=== PATIENT | male | born 1975 | race Caucasian/White ===

== ENCOUNTER 2018-04-23 12:36 | Emergency (ER) | payer OTHER ==
[~2018-04-23] VITALS: Ht 182.9 cm; Wt 127.0 kg
[~2018-04-23 12:36] MED LIST: CEPH500 PO; HYDACE10B PO; HYDACE5 PO; SULTRIDS PO
[2018-04-23] MEDS ORDERED: NEOPOLHCSU LEFTEAR (12:47)
== END 2018-04-23 12:49 | disposition home or self-care (01) ==
LOC: ER 12:36
DX: T16.2XXA Foreign body in left ear, initial encounter (principal); H60.92 Unspecified otitis externa, left ear; Z79.899 Other long term (current) drug therapy; F17.200 Nicotine dependence, unspecified, uncomplicated
CPT/HCPCS: 69200; 99282-25

== ENCOUNTER 2018-07-08 09:56 | Emergency (ER) | payer OTHER ==
[~2018-07-08] VITALS: Ht 182.9 cm; Wt 124.7 kg
[~2018-07-08 09:56] MED LIST changes: +NEOPOLHCSU LEFTEAR
[2018-07-08 10:31] LABS: BASOPHILS ABSOLUTE AUTO 0.03 K/mm3 (0.00-0.23); BASOPHILS PERCENT AUTO 0 % (0-2); EOSINOPHILS ABSOLUTE AUTO 0.04 K/mm3 (0.00-0.68); EOSINOPHILS PERCENT AUTO 1 % (0-6); Hematocrit 43.5 % (37.0-53.0); Hemoglobin 13.9 g/dL (13.5-17.5); IMMATURE GRAN ABSOLUTE AUTO 0.04 K/mm3 (0.00-0.10); IMMATURE GRAN PERCENT AUTO 1 % (0-1); LYMPHOCYTES ABSOLUTE AUTO 1.74 K/mm3 (0.84-5.20); LYMPHOCYTES PERCENT AUTO 20 % (21-46); MONOCYTES ABSOLUTE AUTO 0.93 K/mm3 (0.16-1.47); MONOCYTES PERCENT AUTO 11 % (4-13); Mean Corpuscular HGB 31.2 pg (26.0-34.0); Mean Corpuscular Volume 98 fL (80-100); Mean Platelet Volume 9.5 fL (9.1-12.4); NEUTROPHILS ABSOLUTE AUTO 5.75 K/mm3 (1.96-9.15); NEUTROPHILS PERCENT AUTO 67 % (41-73); Platelet Count 195 K/mm3 (150-400); RDW Coefficient Variation 13.7 % (11.7-14.2); RDW Standard Deviation 48.5 fL (35.1-46.3); Red Blood Cell Count 4.46 M/mm3 (4.30-5.90); White Blood Cell Count 8.53 K/mm3 (4.00-11.30)
[2018-07-08 10:59] LABS: Alanine Aminotransfer (ALT/SGP 125 U/L (12-78); Albumin, Blood 3.3 g/dL (3.4-5.0); Albumin/Globulin Ratio 0.8 (0.8-1.8); Alk Phos 111 U/L (50-136); Anion Gap 8 mmol/L (6-16); Aspartate Aminotrans (AST/SGOT 79 U/L (12-37); Bilirubin, Total 1.4 mg/dL (0.1-1.0); Blood Urea Nitrogen 9 mg/dL (8-24); Bun/Creatinine Ratio 12.2 (12.0-20.0); CO2, Blood 25 mmol/L (21-32); Calcium, Blood 8.5 mg/dL (8.5-10.1); Chloride, Blood 101 mmol/L (98-108); Creatinine, Blood 0.74 mg/dL (0.60-1.20); Globulin, Blood 4.4 g/dL (2.2-4.0); Glomerular Filtration Rate >60 (60-); Glucose, Blood 176 mg/dL (70-99); Potassium, Blood 3.9 mmol/L (3.5-5.5); Sodium, Blood 134 mmol/L (136-145); Total Protein, Blood 7.7 g/dL (6.4-8.2); Troponin I <0.015 ng/mL (0.000-0.040)
[2018-07-08] MEDS ORDERED: Zithromax250 MG PO (11:56)
[2018-07-08] MEDS ORDERED: Proventil5 MG/1 ML INH (11:56)
[2018-07-08] MEDS ORDERED: ALBU90OI INH (11:56)
[2018-07-08] MEDS ORDERED: Prednisone20 MG PO (11:56)
== END 2018-07-08 12:26 | disposition home or self-care (01) ==
LOC: ER 09:56
PROVIDERS: Emergency Medicine
DX: J18.1 Lobar pneumonia, unspecified organism (principal); J98.01 Acute bronchospasm; F17.200 Nicotine dependence, unspecified, uncomplicated
CPT/HCPCS: 36415; 71046; 80053; 83880; 84484; 85025; 93005; 93010; 94640; 99285-25

== ENCOUNTER 2018-07-14 16:03 | Observation (INO) | payer OTHER ==
[~2018-07-14] VITALS: Ht 182.9 cm; Wt 133.7 kg
[~2018-07-14 16:03] MED LIST changes: +ALBU90OI INH; +Prednisone20 MG PO; +Proventil5 MG/1 ML INH; +Zithromax250 MG PO
[2018-07-14 18:13] LABS: BASOPHILS ABSOLUTE AUTO 0.13 K/mm3 (0.00-0.23); BASOPHILS PERCENT AUTO 1 % (0-2); EOSINOPHILS ABSOLUTE AUTO 0.16 K/mm3 (0.00-0.68); EOSINOPHILS PERCENT AUTO 2 % (0-6); Hematocrit 51.5 % (37.0-53.0); Hemoglobin 15.9 g/dL (13.5-17.5); IMMATURE GRAN ABSOLUTE AUTO 0.43 K/mm3 (0.00-0.10); IMMATURE GRAN PERCENT AUTO 4 % (0-1); LYMPHOCYTES ABSOLUTE AUTO 2.77 K/mm3 (0.84-5.20); LYMPHOCYTES PERCENT AUTO 27 % (21-46); MONOCYTES ABSOLUTE AUTO 1.06 K/mm3 (0.16-1.47); MONOCYTES PERCENT AUTO 10 % (4-13); Mean Corpuscular HGB 31.2 pg (26.0-34.0); Mean Corpuscular HGB Conc 30.9 g/dL (31.5-36.5); Mean Platelet Volume 9.5 fL (9.1-12.4); NEUTROPHILS ABSOLUTE AUTO 5.74 K/mm3 (1.96-9.15); NEUTROPHILS PERCENT AUTO 56 % (41-73); Platelet Count 250 K/mm3 (150-400); RDW Coefficient Variation 14.5 % (11.7-14.2); RDW Standard Deviation 53.2 fL (35.1-46.3); White Blood Cell Count 10.29 K/mm3 (4.00-11.30)
[2018-07-14 18:15] LABS: Mean Corpuscular Volume 101 fL (80-100)
[2018-07-14 18:26] LABS: Bun/Creatinine Ratio 15.5 (12.0-20.0); Calcium, Blood 9.6 mg/dL (8.5-10.1); Potassium, Blood 4.3 mmol/L (3.5-5.5)
[2018-07-14] MEDS ORDERED: ALBU90OI61 INH (22:31)
[2018-07-14 23:36] LABS: Bilirubin, Urine Neg (Neg); Blood, Urine Neg (Neg); Glucose Qualitative, Urine Neg (Neg); Ketones, Urine Neg (Neg); Leukocyte Esterase, Urine Neg (Neg); Nitrite, Urine Neg (Neg); Protein, Urine 2+ (Neg); Source, Urine Clean Catch; Specific Gravity, Urine 1.025 (1.003-1.022); Urobilinogen, Urine NORM (Normal)
[2018-07-14 23:38] LABS: Appearance, Urine Clear (Clear); Color, Urine Yellow (P-Yellow)
[2018-07-14 23:48] LABS: Amorphous Light (0-Heavy); Bacteria Few /hpf; Red Blood Cells, Urine Not Seen /hpf (0-2); Squamous Epithelial Cells Few /hpf (Few); White Blood Cells, Urine 0-2 /hpf (0-5)
[2018-07-15 03:44] LABS: Hematocrit 46.1 % (37.0-53.0); Hemoglobin 14.5 g/dL (13.5-17.5); Mean Corpuscular HGB 31.1 pg (26.0-34.0); Mean Corpuscular HGB Conc 31.5 g/dL (31.5-36.5); Mean Corpuscular Volume 99 fL (80-100); Mean Platelet Volume 9.3 fL (9.1-12.4); Platelet Count 206 K/mm3 (150-400); RDW Coefficient Variation 14.1 % (11.7-14.2); RDW Standard Deviation 50.9 fL (35.1-46.3); Red Blood Cell Count 4.66 M/mm3 (4.30-5.90); White Blood Cell Count 9.95 K/mm3 (4.00-11.30)
[2018-07-15 04:01] LABS: Anion Gap 6 mmol/L (6-16); Blood Urea Nitrogen 26 mg/dL (8-24); Bun/Creatinine Ratio 22.8 (12.0-20.0); CO2, Blood 29 mmol/L (21-32); Calcium, Blood 8.8 mg/dL (8.5-10.1); Chloride, Blood 100 mmol/L (98-108); Creatinine, Blood 1.14 mg/dL (0.60-1.20); Glomerular Filtration Rate >60 (60-); Glucose, Blood 188 mg/dL (70-99); Potassium, Blood 5.2 mmol/L (3.5-5.5); Sodium, Blood 135 mmol/L (136-145)
[2018-07-15] MEDS ORDERED: OMEPRAZOLE20 MG PO (13:12)
== END 2018-07-15 14:05 | disposition home or self-care (01) ==
LOC: ER 16:03 → SURS 16:04 → PCU 16:04
PROVIDERS: Emergency Medicine; Internal Medicine Gastroenterology; Nurse Practitioner Acute Care; ADMIT Family Medicine
PROC: 0DC58ZZ Extirpation of Matter from Esophagus, Via Natural or Artificial Opening Endoscopic (ICD-10-PCS; principal; 2018-07-14 18:30)
DX: T18.128A Food in esophagus causing other injury, initial encounter (principal); N17.9 Acute kidney failure, unspecified; J96.01 Acute respiratory failure with hypoxia; K22.2 Esophageal obstruction; E66.01 Morbid (severe) obesity due to excess calories; F17.210 Nicotine dependence, cigarettes, uncomplicated; Z68.37 Body mass index [BMI] 37.0-37.9, adult
CPT/HCPCS: 36415; 71045; 71046; 80048; 81001; 82550; 83735; 84145; 85025; 85027; 94640; 94762; 96374; 96375; 99285-25; G0378; J0360; J1610; J1650; J2704; J2930; J3010; J7030; J7120

== ENCOUNTER 2018-08-05 14:26 | Inpatient (IN) | payer OTHER ==
[~2018-08-05] VITALS: Ht 182.9 cm; Wt 138.5 kg
[~2018-08-05 14:26] MED LIST changes: +ALBU90OI61 INH; +OMEPRAZOLE20 MG PO
[2018-08-05 15:12] LABS: BASOPHILS ABSOLUTE AUTO 0.02 K/mm3 (0.00-0.23); BASOPHILS PERCENT AUTO 0 % (0-2); EOSINOPHILS ABSOLUTE AUTO 0.02 K/mm3 (0.00-0.68); EOSINOPHILS PERCENT AUTO 0 % (0-6); Hematocrit 39.4 % (37.0-53.0); Hemoglobin 12.5 g/dL (13.5-17.5); IMMATURE GRAN ABSOLUTE AUTO 0.05 K/mm3 (0.00-0.10); IMMATURE GRAN PERCENT AUTO 1 % (0-1); LYMPHOCYTES ABSOLUTE AUTO 1.37 K/mm3 (0.84-5.20); LYMPHOCYTES PERCENT AUTO 15 % (21-46); MONOCYTES ABSOLUTE AUTO 0.99 K/mm3 (0.16-1.47); MONOCYTES PERCENT AUTO 11 % (4-13); Mean Corpuscular HGB 31.3 pg (26.0-34.0); Mean Corpuscular HGB Conc 31.7 g/dL (31.5-36.5); Mean Corpuscular Volume 99 fL (80-100); Mean Platelet Volume 9.9 fL (9.1-12.4); NEUTROPHILS ABSOLUTE AUTO 6.94 K/mm3 (1.96-9.15); NEUTROPHILS PERCENT AUTO 74 % (41-73); Platelet Count 168 K/mm3 (150-400); RDW Coefficient Variation 14.1 % (11.7-14.2); RDW Standard Deviation 51.4 fL (35.1-46.3); Red Blood Cell Count 3.99 M/mm3 (4.30-5.90); White Blood Cell Count 9.39 K/mm3 (4.00-11.30)
[2018-08-05 15:38] LABS: Albumin, Blood 3.7 g/dL (3.4-5.0); Albumin/Globulin Ratio 0.9 (0.8-1.8); Bilirubin, Total 1.4 mg/dL (0.1-1.0); Bun/Creatinine Ratio 17.6 (12.0-20.0); Calcium, Blood 8.4 mg/dL (8.5-10.1); Creatinine, Blood 2.89 mg/dL (0.60-1.20); Potassium, Blood 4.3 mmol/L (3.5-5.5); Total Protein, Blood 7.7 g/dL (6.4-8.2)
[2018-08-05 16:59] LABS: Salicylate <1.7 mg/dL (2.8-20.0)
[2018-08-05] MEDS ORDERED: ALBU2.5V5 NEB (17:01)
[2018-08-05 17:10] LABS: Acetaminophen, Random <2.0 ug/mL (10.0-30.0)
[2018-08-05 17:49] LABS: U Amphetamine Screen Not Detected; U Barbituate Screen Not Detected; U Benzodiazapine Screen Not Detected; U Buprenorphine Screen Not Detected; U Cannabinoids Screen DETECTED; U Cocaine Screen Not Detected; U Methadone Screen Not Detected; U Methamphetamine Screen Not Detected; U Opiates Screen DETECTED; U Oxycodone Screen Not Detected; U Phencyclidine Screen Not Detected; U Propoxyphene Screen Not Detected
[2018-08-05 17:49] LABS: PCO2 Arterial 59.8 mmHg (35-45); pH Blood Arterial 7.21 (7.35-7.45)
[2018-08-05 18:19] LABS: Uric Acid, Blood 11.9 mg/dL (3.5-7.2)
[2018-08-05 18:27] LABS: Magnesium, Blood 2.2 mg/dL (1.6-2.4)
[2018-08-05 18:27] LABS: Source, Urine Clean Catch
[2018-08-05 18:28] LABS: Phosphorus, Blood 4.6 mg/dL (2.5-4.9)
[2018-08-05 18:31] LABS: Bilirubin, Urine Neg (Neg); Blood, Urine 3+ (Neg); Glucose Qualitative, Urine 3+ (Neg); Ketones, Urine Neg (Neg); Leukocyte Esterase, Urine Neg (Neg); Nitrite, Urine Neg (Neg); Protein, Urine 2+ (Neg); Specific Gravity, Urine 1.025 (1.003-1.022); Urobilinogen, Urine NORM (Normal)
[2018-08-05 18:41] LABS: Appearance, Urine Turbid (Clear); Color, Urine Yellow (P-Yellow)
[2018-08-05 18:42] LABS: CHOL/HDL RATIO 4.9; Cholesterol 222 mg/dL (50-200); HDL Cholesterol 45 mg/dL (>39); Low Density Lipoprotein Chol 134 mg/dL (0-110); Triglycerides 213 mg/dL (30-160); Very Low Density Lipoprot Chol 42 mg/dL (6-32)
[2018-08-05 18:43] LABS: Amorphous Heavy (0-Heavy); White Blood Cells, Urine 0-2 /hpf (0-5)
[2018-08-05 18:44] LABS: Bacteria Few /hpf; Squamous Epithelial Cells Not Seen /hpf (Few)
[2018-08-05] MEDS ORDERED: OMEPRAZOLE MAGN20 MG PO (19:04)
[2018-08-05 20:29] LABS: U Amphetamine Screen Not Detected; U Barbituate Screen Not Detected; U Benzodiazapine Screen Not Detected; U Buprenorphine Screen Not Detected; U Cannabinoids Screen DETECTED; U Cocaine Screen Not Detected; U Methadone Screen Not Detected; U Methamphetamine Screen Not Detected; U Opiates Screen DETECTED; U Oxycodone Screen Not Detected; U Phencyclidine Screen Not Detected; U Propoxyphene Screen Not Detected
--- NOTE | 2018-08-05 21:19 | NUR ---
ASSUMED CARE OF PATIENT AT APPROXIMATELY 1905 FROM CM Aldridge RN. PATIENT ARRIVED TO UNIT ABOUT THIRTY MINUTES BEFORE SHIFT CHANGE; AMBULATED FROM ED TO PCU STRETCHER REPORTEDLY. PATIENT HAS VISIBLE TREMOR; PATIENT AND SIGNIFICANT OTHER REPORTS TREMOR FOR DAYS; PATIENT REPORTS HE DRINKS A PINT OF VODKA A DAY; LAST ON THURSDAY; PATIENT UNABLE TO STATE CURRENT DATE (REPORTED 08/15); ANXIOUS; IRRITABLE; REPORTS TOO MANY NOISES. PATIENT SWEATING; TELE STICKERS FALLING OFF PATIENT; REPORTS BEEN SWEATING LIKE THIS FOR DAYS. PATIENT'S GIRLFRIEND REPORTS HE TOOK A [place] FOR A FRIEND A FEW DAYS AGO; UA SENT; POSISTIVE. WHILE TAKING VITAL SIGNS AT SHIFT CHANGE THIS RN ATTEMPTED TO STERNAL RUB PATIENT; PATIENT WAS ON BIPAP AND WAS NOT OPENING EYES; VSS; PATIENT WOKE PATIENT UP WITH A SLAP. PATIENT AND GIRLFRIEND BOTH REPORTED THAT PATIENT WAS LIKE THIS THIS MORNING; HE WAS ALSO FOAMING OUT THE MOUTH AND IS WHY THE PATIENT CAME INTO THE HOSPITAL. WILL CALL HOSPITALIST FOR ALCOHOL WITHDRAWAL PROTOCOL. 1L NS BOLUS COMPLETE. PATIENT URINATES INTO URINAL AT BEDSIDE. REPORTS NUMBNESS AND TINGLING TO FEET FOR MONTHS NOW. NO PAIN OR NAUSEA REPORTED. PATIENT'S GIRLFRIEND REPORTS PATIENT WAS DIZZY THIS MORNING; PATIENT CURRENTLY DENIES. PATIENT CURRENTLY RESTING IN BED; CALL LIGHT IN REACH; BED IN LOWEST POSISTION; WILL CONTINUE TO MONITOR AND ASSESS UNTIL END OF SHIFT.
[2018-08-05 23:00] LABS: Bun/Creatinine Ratio 22.2 (12.0-20.0); Calcium, Blood 7.9 mg/dL (8.5-10.1); Creatinine, Blood 1.85 mg/dL (0.60-1.20); Potassium, Blood 5.1 mmol/L (3.5-5.5)
[2018-08-05 23:04] LABS: PCO2 Arterial 48.9 mmHg (35-45); PO2 Arterial 76.4 mmHg (80-100)
[2018-08-05 23:05] LABS: pH Blood Arterial 7.27 (7.35-7.45)
[2018-08-05 23:27] LABS: International Normalized Ratio 1.03; Prothrombin Time Results 10.9 Sec (9.7-11.5)
[2018-08-06 03:25] LABS: Hematocrit 31.5 % (37.0-53.0); Hemoglobin 9.8 g/dL (13.5-17.5); Mean Corpuscular HGB Conc 31.1 g/dL (31.5-36.5); Mean Corpuscular Volume 100 fL (80-100); Mean Platelet Volume 9.9 fL (9.1-12.4); Platelet Count 129 K/mm3 (150-400); RDW Coefficient Variation 14.1 % (11.7-14.2); RDW Standard Deviation 51.6 fL (35.1-46.3); Red Blood Cell Count 3.16 M/mm3 (4.30-5.90); White Blood Cell Count 6.04 K/mm3 (4.00-11.30)
[2018-08-06 03:44] LABS: International Normalized Ratio 1.1; Prothrombin Time Results 11.6 Sec (9.7-11.5)
[2018-08-06 03:49] LABS: Uric Acid, Blood 6.5 mg/dL (3.5-7.2)
[2018-08-06 04:06] LABS: Alanine Aminotransfer (ALT/SGP 104 U/L (12-78); Albumin, Blood 2.6 g/dL (3.4-5.0); Albumin/Globulin Ratio 0.9 (0.8-1.8); Alk Phos 63 U/L (50-136); Anion Gap 5 mmol/L (6-16); Aspartate Aminotrans (AST/SGOT 87 U/L (12-37); Bilirubin, Total 0.7 mg/dL (0.1-1.0); Blood Urea Nitrogen 32 mg/dL (8-24); Bun/Creatinine Ratio 26.7 (12.0-20.0); CO2, Blood 21 mmol/L (21-32); Calcium, Blood 6.5 mg/dL (8.5-10.1); Chloride, Blood 111 mmol/L (98-108); Globulin, Blood 2.9 g/dL (2.2-4.0); Glomerular Filtration Rate >60 (60-); Glucose, Blood 207 mg/dL (70-99); Potassium, Blood 4.3 mmol/L (3.5-5.5); Sodium, Blood 137 mmol/L (136-145)
[2018-08-06 04:09] LABS: Total Protein, Blood 5.5 g/dL (6.4-8.2)
--- NOTE | 2018-08-06 06:22 | NUR ---
PATIENT HAS SLEPT ABOUT 8 HOURS WITH BIPAP; STANDS TO URINATE AT BEDISDE; POWERGLIDE PLACED IN MAXINE. LABS IMPROVING; IVF INFUSING PER ORDER. VSS. WILL CONTINUE TO MONITOR AND ASSESS UNTIL END OF SHIFT.
--- NOTE | 2018-08-06 09:12 | NUR ---
Echocardiogram completed.
--- NOTE | 2018-08-06 19:31 | NUR ---
SHIFT SUMMARY- PT C/O LOWER BACK PAIN THIS PM. MEDS GIVEN PER EMAR. PT DENIES SOB. 93% ON 4L O2 NC. DENIES N/V. CIWA SCORES THIS AM AND AFTERNOON 2-4. CIWA SCORE OF 9 THIS PM. MEDS GIVEN PER EMAR. INDEPENDENT IN THE ROOM. NSR AT 72 PER PCU BLOCK HANDLER. NO OTHER SIGNIFICANT CHANGES THIS SHIFT.
[2018-08-07 02:43] LABS: Adenovirus Not Detected (NOT DETECT); Bordetella pertussis Not Detected (NOT DETECT); Chlamydophila pneumoniae Not Detected (NOT DETECT); Coronavirus 229E Not Detected (NOT DETECT); Coronavirus HKU1 Not Detected (NOT DETECT); Coronavirus NL63 Not Detected (NOT DETECT); Coronavirus OC43 Not Detected (NOT DETECT); Human Metapneumovirus Not Detected (NOT DETECT); Human Rhinovirus/Enterovirus Not Detected (NOT DETECT); Influenza A Not Detected (NOT DETECT); Influenza A/2009-H1 Not Detected (NOT DETECT); Influenza A/H1 Not Detected (NOT DETECT); Influenza A/H3 Not Detected (NOT DETECT); Influenza B Not Detected (NOT DETECT); Mycoplasma pneumoniae Not Detected (NOT DETECT); Parainfluenza Virus 1 Not Detected (NOT DETECT); Parainfluenza Virus 2 Not Detected (NOT DETECT); Parainfluenza Virus 3 Not Detected (NOT DETECT); Parainfluenza Virus 4 Not Detected (NOT DETECT); Respiratory Syncytial Virus Not Detected (NOT DETECT)
--- NOTE | 2018-08-07 06:37 | NUR ---
SHIFT SUMMARY PT ADMITTED W/ ACUTE RESP FAILURE & HYPOXIA. HE IS ALSO UNDER CIWAS PROTOCOL, LAST CIWA AT 0415 WAS 13 AND HE WAS GIVEN ATIVAN AND LIBRIUM AT THAT TIME. TELE WAS NSR OVERNIGHT. PT IS HAVING LOOSE STOOLS AND COPIOUS FLATUS R/T THE LACTULOSE TO BRING HIS LACTIC ACID DOWN. PT IS A&O, INDEP TO THE BR. 3L VIA CO AND HE WORE HIS BIPAP FOR A FEW HOURS OVERNIGHT. PT'S VISITOR HAD A FALL LAST NIGHT, TRIED TO GET OUT OF THE RECLINER WITH A CASTED LEG WITHOUT PUTTING DOWN THE FOOT OF THE RECLINER. SHE REFUSED TO GO TO THE ED FOLLOWING THE FALL. WILL CTM UNTIL PASS TO NEXT SHIFT.
--- NOTE | 2018-08-07 18:50 | NUR ---
ASSUMED CARE OF PT AT APPROXIMATELY 1630. PT ALERT AND ORIENTED. VS STABLE. 02 SATS >90% ON 2L NC. HR IS AFIB IN THE 100'S. PT DENIES ANY CP. REPORT GIVEN TO RN BARIATRIC RN.
--- NOTE | 2018-08-07 18:51 | NUR ---
SHIFT SUMMARY PT ALERT AND ORIENTED. VS STABLE. 02 SATS HAVE REMAINED ABOVE 92% ON 2L NC. PT STATES HE FEELS ANXIOUS OCCASIONALLY, BUT FEELS RELAXED AFTER WALKING. PT TAKEN ON MULTIPLE WALKS THROUGHOUT SHIFT. CIWA HAS BEEN A 2 ALL DAY. PT DENIES ANY PAIN. WILL CONTINUE TO MONITOR AND REPORT TO ONCOMING RN. CALL LIGHT IN REACH
--- NOTE | 2018-08-07 20:31 | NUR ---
PT OUTSIDE OF ROOM AT THIS ROUNDING.
[2018-08-08 04:36] LABS: BASOPHILS ABSOLUTE AUTO 0.01 K/mm3 (0.00-0.23); BASOPHILS PERCENT AUTO 0 % (0-2); EOSINOPHILS ABSOLUTE AUTO 0.01 K/mm3 (0.00-0.68); EOSINOPHILS PERCENT AUTO 0 % (0-6); Hematocrit 35.9 % (37.0-53.0); Hemoglobin 11.2 g/dL (13.5-17.5); IMMATURE GRAN ABSOLUTE AUTO 0.13 K/mm3 (0.00-0.10); IMMATURE GRAN PERCENT AUTO 1 % (0-1); LYMPHOCYTES PERCENT AUTO 16 % (21-46); MONOCYTES ABSOLUTE AUTO 0.93 K/mm3 (0.16-1.47); MONOCYTES PERCENT AUTO 10 % (4-13); Mean Corpuscular HGB 31.7 pg (26.0-34.0); Mean Corpuscular HGB Conc 31.2 g/dL (31.5-36.5); Mean Corpuscular Volume 102 fL (80-100); Mean Platelet Volume 10.4 fL (9.1-12.4); NEUTROPHILS ABSOLUTE AUTO 7.12 K/mm3 (1.96-9.15); NEUTROPHILS PERCENT AUTO 73 % (41-73); Platelet Count 193 K/mm3 (150-400); RDW Coefficient Variation 14.6 % (11.7-14.2); RDW Standard Deviation 53.8 fL (35.1-46.3); Red Blood Cell Count 3.53 M/mm3 (4.30-5.90)
--- NOTE | 2018-08-08 04:47 | NUR ---
PT HAD NO ACUTE CHANGES T/O NIGHT. SATS >90% ON 2LNC. PT HAD DIFFICULTY KEEPING CPAP IN PLACE, REP "IT FEELS LIKE I'M SUFFOCATING" PT EDUCATED AND REASSURRED, ENC TO CONT TO TRIAL CPAP WHILE SLEEPING. LUNGS DIM T/O W/EXP WNEEZING, PT REP COUGH LOOSER THIS AM. PT AMB INDEP, BURT WELL, DOES BECOME SOB W/EXERTION. PT DENIED CP. CIWAA MAX 7, PT MEDICATED PER EMAR. SIG OTHER AT BEDSIDE, SUPPORTIVE AND ENCOURAGING. PT USING CALL LIGHT FOR ASSISTANCE, WILL CONT TO MONITOR UNTIL REP GIVEN TO ONCOMING RN.
[2018-08-08 04:56] LABS: PCO2 Arterial 47.1 mmHg (35-45); PO2 Arterial 88.5 mmHg (80-100); pH Blood Arterial 7.32 (7.35-7.45)
[2018-08-08 04:57] LABS: Anion Gap 7 mmol/L (6-16); Blood Urea Nitrogen 25 mg/dL (8-24); Bun/Creatinine Ratio 25.7 (12.0-20.0); CO2, Blood 24 mmol/L (21-32); Calcium, Blood 8.3 mg/dL (8.5-10.1); Chloride, Blood 106 mmol/L (98-108); Creatinine, Blood 0.97 mg/dL (0.60-1.20); Free Thyroxine 0.88 ng/dL (0.70-1.60); Glomerular Filtration Rate >60 (60-); Glucose, Blood 235 mg/dL (70-99); Potassium, Blood 4.4 mmol/L (3.5-5.5); Sodium, Blood 137 mmol/L (136-145); Troponin I 0.025 ng/mL (0.000-0.040)
[2018-08-08 05:00] LABS: Triiodothyronine, Free 1.77 pg/mL (2.18-3.98)
--- NOTE | 2018-08-08 07:21 | NUR ---
ASSUMED CARE: RECEIVED REPORT FROM NOC RN. PT APPEARS TO BE AWAKE AT THIS TIME, REPORT OF PT WEARING CPAP T/O THE NIGHT WITH 2L BLEED IN. AT BEDSIDE AT THIS TIME. WILL ASSESS FURTHER AND CONTINUE TO MONITOR.
--- NOTE | 2018-08-08 10:00 | NUR ---
ASSUMED CARE OF PT AT APPROXIMATELY 0730. PT ALERT AND ORIENTED. VS STABLE. PT HAS BEEN ON ROOM AIR THE LAST 3 HOURS. 02 SATS HAVE REMAINED ABOVE 90%. PT HAS BEEN AMBULATING INDEPENDENTLY. PT ENCOURAGED TO STAY IN UNIT, BUT WALKS OUTSIDE. PT SMELLED LIKE SMOKE WHEN HE BACK IN THIS AM AND EDUCATED ABOUT SMOKING CESSATION. PT DENIES SMOKING. WILL CONTINUE TO MONITOR. AT BEDSIDE.
[2018-08-08 10:37] LABS: Percent Saturation 12.3 % (20.0-50.0)
--- NOTE | 2018-08-08 18:08 | NUR ---
SHIFT SUMMARY PT ALERT AND ORIENTED. VS STABLE. PT TITRATED TO ROOM AIR TODAY WITH SATS >90%. PT DENIES ANY PAIN. PT TOOK MULTIPLE WALKS THIS SHIFT AROUND HOSPITAL. PT TO HAVE SLEEP STUDY THIS EVENING. PT STATES HE FELT MILDLY ANXIOUS THIS SHIFT THAT WAS RELIEVED WITH WALKING. WILL CONTINUE TO MONITOR AND REPORT TO SURGICAL FLOOR RN FOR TRANSFER. CALL LIGHT IN REACH. AT BEDSIDE.
--- NOTE | 2018-08-08 20:26 | NUR ---
TRANSFER NOTE REPORT GIVEN BY DAY SHIFT RN TO RECEIVING RN. PER DAY SHIFT RN, PATIENT LEFT ON WALK DURING REPORT AND DID NOT RETURN UNTIL APPROX 1999, PATIENT WAS PAGED OVERHEAD TO RETURN TO ROOM. AFTER PATIENT RETURNED AT APPROX 1999 PATIENT GATHERED UP ALL HIS BELONINGS AND WAS TRANSFERED OVER TO SURGICAL ROOM 224. PATIENT ABLE TO AMBULATE OVER AND WAS WALKED OVER AND SETTLED IN TO HIS NEW ROOM. ALL BELONGINGS SENT WITH PATIENT. PATIENT'S VISITOR WHO HAS BEEN STAYING THE NIGHT WITH PATIENT PRESENT WITH PATIENT FOR TRANSFER.
--- NOTE | 2018-08-09 06:48 | NUR ---
LYING IN SEMI FOWLERS WITH EYES CLOSED. SLEEP STUDY COMPLETED THIS MORNING. STATES THAT HE FEELS TIRED THIS MORNING. DENIES FURTHER NEEDS AT THIS TIME. WILL GIVE HAND OFF TO ONCOMING SHIFT USING SCAR.
--- NOTE | 2018-08-09 18:26 | NUR ---
SHIFT SUMMARY PT HAS BEEN AMBULATORY SEVERAL TIMES DURING DAY. MD CALLED RE: HTN. NO S/S OF RESP DISTRESS.
--- NOTE | 2018-08-09 21:02 | NUR ---
210: PT CHECKS IN WITH RN AND STATES THAT HE IS GOING TO ER TO WAIT WITH HIS WHO IS WAITING TO BE SEEN. VERRBALIZES UNDERSTANDING TO CALL WHEN HE RETURNS TO ROOM.
--- NOTE | 2018-08-10 09:12 | NUR ---
2719 PATIENT RETURNED TO ROOM PATIENT TELLS ME HE WAS OUT SMOKING, SELF AMBULATED BACK TO ROOM, DENIES ANY PAIN OR SOB
[2018-08-10] MEDS ORDERED: ASPI81CH PO (09:52)
[2018-08-10] MEDS ORDERED: METF500 PO (09:54)
[2018-08-10] MEDS ORDERED: METO25 PO (09:55)
[2018-08-10] MEDS ORDERED: PRED10 PO (09:58)
[2018-08-10] MEDS ORDERED: THIA100I (09:58)
[2018-08-10] MEDS ORDERED: Thiamine HCl100 MG PO (09:59)
[2018-08-10] MEDS ORDERED: AMLO10 PO (10:00)
[2018-08-10] MEDS ORDERED: Hair, Skin & N1 EACH PO (10:01)
[2018-08-10] MEDS ORDERED: METF500 (10:20)
--- NOTE | 2018-08-10 14:12 | NUR ---
2825 discharge discharge instructions reviewed with patient and questions answered. patients prescriptions faxed to [facility] per patient request. spoke with Judi Smith, discharge planning, who tells me Syeda Dockery RN will speak to patient regarding establishing pcp. patient discharged to home accompanied by his girlfriend
== END 2018-08-10 12:40 | disposition home or self-care (01) | DRG 189 ==
LOC: ER 14:26 → SURS 17:41 → PCU 17:41 → SURS 08-08 20:13
PROVIDERS: Nurse Practitioner Acute Care; Physician Assistant; ADMIT Internal Medicine
DX: J96.01 Acute respiratory failure with hypoxia (principal); G92 Toxic encephalopathy; I21.4 Non-ST elevation (NSTEMI) myocardial infarction; J44.1 Chronic obstructive pulmonary disease with (acute) exacerbation; N17.9 Acute kidney failure, unspecified; Z68.41 Body mass index [BMI] 40.0-44.9, adult; F10.239 Alcohol dependence with withdrawal, unspecified; E66.2 Morbid (severe) obesity with alveolar hypoventilation; J96.02 Acute respiratory failure with hypercapnia; K21.9 Gastro-esophageal reflux disease without esophagitis; R79.89 Other specified abnormal findings of blood chemistry; G47.33 Obstructive sleep apnea (adult) (pediatric); F17.210 Nicotine dependence, cigarettes, uncomplicated; E11.9 Type 2 diabetes mellitus without complications; I16.0 Hypertensive urgency; E03.9 Hypothyroidism, unspecified
CPT/HCPCS: 36415; 36600; 51798; 71045; 76700; 80048; 80053; 80061; 81001; 81003; 82140; 82330; 82550; 82570; 82728; 82803; 82947; 83036; 83540; 83550; 83605; 83735; 83880; 84100; 84145; 84300; 84439; 84481; 84484; 84550; 85025; 85027; 85379; 85610; 87040; 87486; 87581; 87633; 87798; 93005; 93010; 93306; 94640; 94660; 94762; 96361; 96374; 99285-25; C1751; G0480; J0456; J1650; J2060; J2930; J7030; J7040; J7050; J7512

== ENCOUNTER → 2019-08-17 | Outpatient (CLI) | payer OTHER ==
[~2019-08-17] MED LIST changes: +ALBU2.5V5 NEB; +AMLO10 PO; +ASPI81CH PO; +Hair, Skin & N1 EACH PO; +METF500; +METF500 PO; +METO25 PO; +OMEPRAZOLE MAGN20 MG PO; +PRED10 PO; +THIA100I; +Thiamine HCl100 MG PO
[2019-08-17 09:57] LABS: BASOPHILS ABSOLUTE AUTO 0.06 K/mm3 (0.00-0.23); BASOPHILS PERCENT AUTO 1 % (0-2); EOSINOPHILS ABSOLUTE AUTO 0.06 K/mm3 (0.00-0.68); EOSINOPHILS PERCENT AUTO 1 % (0-6); Hematocrit 43.1 % (37.0-53.0); Hemoglobin 14.5 g/dL (13.5-17.5); IMMATURE GRAN ABSOLUTE AUTO 0.07 K/mm3 (0.00-0.10); IMMATURE GRAN PERCENT AUTO 1 % (0-1); LYMPHOCYTES ABSOLUTE AUTO 1.46 K/mm3 (0.84-5.20); LYMPHOCYTES PERCENT AUTO 19 % (21-46); MONOCYTES ABSOLUTE AUTO 0.76 K/mm3 (0.16-1.47); MONOCYTES PERCENT AUTO 10 % (4-13); Mean Corpuscular HGB 31.9 pg (26.0-34.0); Mean Corpuscular HGB Conc 33.6 g/dL (31.5-36.5); Mean Corpuscular Volume 95 fL (80-100); NEUTROPHILS PERCENT AUTO 69 % (41-73); Platelet Count 216 K/mm3 (150-400); RDW Coefficient Variation 13.1 % (11.7-14.2); RDW Standard Deviation 45.7 fL (35.1-46.3); Red Blood Cell Count 4.54 M/mm3 (4.30-5.90); White Blood Cell Count 7.71 K/mm3 (4.00-11.30)
[2019-08-17 10:06] LABS: Alanine Aminotransfer (ALT/SGP 185 U/L (12-78); Albumin, Blood 3.8 g/dL (3.4-5.0); Albumin/Globulin Ratio 0.7 (0.8-1.8); Alk Phos 147 U/L (40-126); Anion Gap 13 mmol/L (6-16); Aspartate Aminotrans (AST/SGOT 159 U/L (12-37); Bilirubin, Total 3.5 mg/dL (0.1-1.0); Blood Urea Nitrogen 9 mg/dL (8-24); Bun/Creatinine Ratio 7.6 (12.0-20.0); CO2, Blood 22 mmol/L (21-32); Chloride, Blood 93 mmol/L (98-108); Creatinine, Blood 1.19 mg/dL (0.60-1.20); Globulin, Blood 5.4 g/dL (2.2-4.0); Glomerular Filtration Rate >60 (60-); Potassium, Blood 3.6 mmol/L (3.5-5.5); Sodium, Blood 128 mmol/L (136-145); Total Protein, Blood 9.2 g/dL (6.4-8.2)
[2019-08-17 10:10] LABS: Glucose, Blood 508 mg/dL (70-99)
== END | disposition home or self-care (01) ==
LOC: LAB SHORT 09:51 → LAB EV 09:51
PROVIDERS: Physician Assistant Medical
DX: L03.111 Cellulitis of right axilla (principal); R73.9 Hyperglycemia, unspecified
CPT/HCPCS: 80053; 83036; 84681; 85025; 87070; 87075; 87205

== ENCOUNTER 2020-07-11 07:55 | Observation (INO) | payer OTHER ==
[~2020-07-11] VITALS: Ht 182.9 cm; Wt 141.5 kg
[~2020-07-11 07:55] MED LIST changes: -ASPI81CH PO; +Aspirin EC81 MG PO; -METF500
[2020-07-11 08:49] LABS: BASOPHILS ABSOLUTE AUTO 0.11 K/mm3 (0.00-0.23); BASOPHILS PERCENT AUTO 1 % (0-2); EOSINOPHILS ABSOLUTE AUTO 0.14 K/mm3 (0.00-0.68); EOSINOPHILS PERCENT AUTO 1 % (0-6); Hematocrit 42.3 % (37.0-53.0); Hemoglobin 14.4 g/dL (13.5-17.5); IMMATURE GRAN ABSOLUTE AUTO 0.08 K/mm3 (0.00-0.10); IMMATURE GRAN PERCENT AUTO 1 % (0-1); LYMPHOCYTES ABSOLUTE AUTO 2.75 K/mm3 (0.84-5.20); LYMPHOCYTES PERCENT AUTO 23 % (21-46); MONOCYTES PERCENT AUTO 7 % (4-13); Mean Corpuscular Volume 97 fL (80-100); Mean Platelet Volume 9.7 fL (9.1-12.4); NEUTROPHILS PERCENT AUTO 67 % (41-73); Platelet Count 185 K/mm3 (150-400); RDW Coefficient Variation 12.6 % (11.7-14.2); RDW Standard Deviation 45.6 fL (35.1-46.3); Red Blood Cell Count 4.36 M/mm3 (4.30-5.90); White Blood Cell Count 11.78 K/mm3 (4.00-11.30)
[2020-07-11 09:04] LABS: Alanine Aminotransfer (ALT/SGP 91 U/L (12-78); Albumin, Blood 3.4 g/dL (3.4-5.0); Albumin/Globulin Ratio 0.8 (0.8-1.8); Alk Phos 101 U/L (50-136); Anion Gap 10 mmol/L (6-16); Aspartate Aminotrans (AST/SGOT 100 U/L (12-37); Bilirubin, Total 0.8 mg/dL (0.1-1.0); Blood Urea Nitrogen 9 mg/dL (8-24); Bun/Creatinine Ratio 14.1 (12.0-20.0); CO2, Blood 22 mmol/L (21-32); Calcium, Blood 8.6 mg/dL (8.5-10.1); Chloride, Blood 104 mmol/L (98-108); Creatinine, Blood 0.64 mg/dL (0.60-1.20); Globulin, Blood 4.2 g/dL (2.2-4.0); Glomerular Filtration Rate >60 (60-); Glucose, Blood 206 mg/dL (70-99); Potassium, Blood 3.9 mmol/L (3.5-5.5); Sodium, Blood 136 mmol/L (136-145); Total Protein, Blood 7.6 g/dL (6.4-8.2)
[2020-07-11] MEDS ORDERED: BASAGLAR K100 UNIT/8 SC (09:35)
[2020-07-11] MEDS ORDERED: LISINOPRIL2.5 MG PO (09:36)
[2020-07-11] MEDS ORDERED: WIXELA 250-501 EAC1 INH (09:36)
[2020-07-11] MEDS ORDERED: ROSUVASTATIN CA10 MG PO (09:36)
[2020-07-11] MEDS ORDERED: METFORMIN HCL1000 M6 PO (09:37)
[2020-07-11] MEDS ORDERED: LISI5 PO (12:17)
--- NOTE | 2020-07-11 19:21 | NUR ---
ED ADMIT FROM [place]. PT DIAGNOSED WITH PERITONSILLAR ABSCESS. HX OF HTN, DM2. PT AA&OX4. IV L FOREARM PATENT. INDEPENDENT IN ROOM PLEASANT AND COOPERATIVE. PT ADMITS DRINKING A FIFTH OF VODA AND SMOKING APACK OF CIGARRTES DAILY. NO CIWA. ONE BEER ORDERED AT [facility] IS FOR DISCHARGE TOMORROW. INDEPENDENT IN ROOM. PAIN IS TOLERABLE. HE STATES HE "IS ALREADY FEELING BETTER" HE HAS NO QUESTIONS OR CONCERNS AT THIS TIME.
[2020-07-12 05:31] LABS: BASOPHILS ABSOLUTE AUTO 0.03 K/mm3 (0.00-0.23); BASOPHILS PERCENT AUTO 0 % (0-2); EOSINOPHILS PERCENT AUTO 0 % (0-6); Hemoglobin 14.6 g/dL (13.5-17.5); IMMATURE GRAN ABSOLUTE AUTO 0.11 K/mm3 (0.00-0.10); IMMATURE GRAN PERCENT AUTO 1 % (0-1); LYMPHOCYTES ABSOLUTE AUTO 0.98 K/mm3 (0.84-5.20); LYMPHOCYTES PERCENT AUTO 10 % (21-46); MONOCYTES ABSOLUTE AUTO 0.29 K/mm3 (0.16-1.47); MONOCYTES PERCENT AUTO 3 % (4-13); Mean Corpuscular HGB 32.8 pg (26.0-34.0); Mean Corpuscular HGB Conc 33.2 g/dL (31.5-36.5); Mean Corpuscular Volume 99 fL (80-100); Mean Platelet Volume 9.9 fL (9.1-12.4); NEUTROPHILS ABSOLUTE AUTO 8.62 K/mm3 (1.96-9.15); NEUTROPHILS PERCENT AUTO 86 % (41-73); Platelet Count 176 K/mm3 (150-400); RDW Coefficient Variation 12.4 % (11.7-14.2); RDW Standard Deviation 44.7 fL (35.1-46.3); Red Blood Cell Count 4.45 M/mm3 (4.30-5.90); White Blood Cell Count 10.03 K/mm3 (4.00-11.30)
[2020-07-12 06:00] LABS: Anion Gap 7 mmol/L (6-16); Blood Urea Nitrogen 14 mg/dL (8-24); Bun/Creatinine Ratio 18.2 (12.0-20.0); CO2, Blood 25 mmol/L (21-32); Chloride, Blood 102 mmol/L (98-108); Creatinine, Blood 0.77 mg/dL (0.60-1.20); Glomerular Filtration Rate >60 (60-); Glucose, Blood 301 mg/dL (70-99); Potassium, Blood 4.4 mmol/L (3.5-5.5); Sodium, Blood 134 mmol/L (136-145)
--- NOTE | 2020-07-12 06:42 | NUR ---
SHIFT SUMMARY PT IS A 75 Y/O MALE, ADMITTED FOR A PERITONSILLAR ABSCESS. HE IS A&O X 4, INDEPENDENT IN THE ROOM. PT DENIED ANY ACUTE PAIN, NAUSEA OR SOB. VITAL SIGNS STABLE. PT'S BLOOD SUGAR AT HS WAS 346, MEDICATED WITH 3 UNIT HUMULIN. DUPLICATE SET OF ACHS INSULIN ORDER WAS HELD PER HOSPITALIST ASHLYN DENIS. NO ACUTE CHANGES IN PT CONDITION NOTED DURING THE NIGHT. WILL CONTINUE TO MONITOR AND TREAT PER EMAR UNTIL HAND OFF TO DAY SHIFT RN.
[2020-07-12 11:55] LABS: Glucose, Blood 464 mg/dL (70-99)
[2020-07-12] MEDS ORDERED: Norco 5-325 Ta1 EACH PO (12:19)
[2020-07-12] MEDS ORDERED: CLIN150 PO (12:19)
--- NOTE | 2020-07-12 13:03 | NUR ---
DISCHARGED:Home, stated he would continue to monitor his blood sugar, because of high cbg, dr informed of cbg and recommended following home regiment, pt agreed, REVIEWED:medication, stay, scheduled appointments, and discharge instructions, REMOVED: iv with no difficulties, eschorted to family car in a
--- NOTE | 2020-07-12 15:51 | NUR ---
ADMIT: 07/11/20 DISCHARGE: 07/12/20 DX: abscess CC: cpeabody MELANIE CALL: Met with Hari at discharge, call him for melanie, midlevel in 2 weeks ok. 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 Has transportation benefit with A but usually has Aunt give him a ride. Reviewed melanie letter and discussed phone call from [facility] on Thursday or Thursday to schedule follow up appt in 2 weeks.. No care needs identified at discharge. cp 1: Peritonsillar abscess A/P: CT finding remarkable
== END 2020-07-12 12:35 | disposition home or self-care (01) ==
LOC: ER 07:55 → ERHOLD 07:56 → ER 07:56 → ERHOLD 07:57 → MEDS 07:57 → ERHOLD 15:31 → MEDS 15:31
PROVIDERS: Emergency Medicine; ADMIT Internal Medicine
DX: J36 Peritonsillar abscess (principal); E11.9 Type 2 diabetes mellitus without complications; I10 Essential (primary) hypertension; E78.5 Hyperlipidemia, unspecified; J44.9 Chronic obstructive pulmonary disease, unspecified; F17.200 Nicotine dependence, unspecified, uncomplicated; E66.01 Morbid (severe) obesity due to excess calories; F10.10 Alcohol abuse, uncomplicated; F12.10 Cannabis abuse, uncomplicated; Z79.82 Long term (current) use of aspirin; Z68.41 Body mass index [BMI] 40.0-44.9, adult; Z79.4 Long term (current) use of insulin
CPT/HCPCS: 36415; 70491; 80048; 80053; 82947; 85025; 94640; 94760; 96365-59; 99285-25; A9270; G0378; J1100; J1815; J2920; J7050; Q9967

== ENCOUNTER 2020-11-16 07:37 | Day surgery (SDC) | payer OTHER ==
[~2020-11-16] VITALS: Ht 181 cm; Wt 136.2 kg
[~2020-11-16 07:37] MED LIST changes: +BASAGLAR K100 UNIT/8 SC; +CLIN150 PO; +LISI5 PO; +LISINOPRIL2.5 MG PO; +METFORMIN HCL1000 M6 PO; +Norco 5-325 Ta1 EACH PO; +ROSUVASTATIN CA10 MG PO; +WIXELA 250-501 EAC1 INH
--- NOTE | 2020-11-16 08:35 | NUR ---
Ambulatory in Day Surgery History, Chart, Medications and Allergies reviewed before start of procedure.Patient confirms NPO status and agrees with scheduled surgery. Patient states colon prep results clear.
--- NOTE | 2020-11-16 10:27 | NUR ---
PT TOLERATING PO FLUIDS.
--- NOTE | 2020-11-16 10:39 | NUR ---
Discharge instructions reviewed with patient. Patient verbalizes understanding. Copy given to patient to take home.
--- NOTE | 2020-11-16 10:51 | NUR ---
Discharged via wheelchair to private car for ride home.
--- NOTE | 2020-11-19 12:38 | NUR ---
11/19/20 1237 CHRISTA LIVINGSTON LATE ENTRY 11/16/20 0898 History, Chart, Medications and Allergies reviewed before start of procedure. 3-LEAD EKG REVIEWED WITH PHYSICIAN PRIOR TO START OF PROCEDURE. O2 VIA N/C INTACT THROUGHOUT SEDATION/PROCEDURE. MONITOR INTACT WITH CONTINUOUS PULSE OXIMETRY AND INTERMITTENT BP. MAC WITH DR. ROMERO.
== END 2020-11-16 10:53 | disposition home or self-care (01) ==
LOC: ORSCMMR 07:37 → ORD 09:00 → ORSCMMR 09:00
PROVIDERS: Surgery
PROC: 0DBE8ZX Excision of Large Intestine, Via Natural or Artificial Opening Endoscopic, Diagnostic (ICD-10-PCS; principal; 2020-11-16 09:00)
PROC: 0DBP8ZX Excision of Rectum, Via Natural or Artificial Opening Endoscopic, Diagnostic (ICD-10-PCS; principal; 2020-11-16 09:00)
DX: K62.5 Hemorrhage of anus and rectum (principal); K62.1 Rectal polyp; K64.4 Residual hemorrhoidal skin tags; K62.89 Other specified diseases of anus and rectum; G47.33 Obstructive sleep apnea (adult) (pediatric); E11.9 Type 2 diabetes mellitus without complications; E78.5 Hyperlipidemia, unspecified; J44.9 Chronic obstructive pulmonary disease, unspecified; I10 Essential (primary) hypertension; F41.9 Anxiety disorder, unspecified; E66.9 Obesity, unspecified; Z68.41 Body mass index [BMI] 40.0-44.9, adult; Z79.82 Long term (current) use of aspirin; Z79.4 Long term (current) use of insulin; Z79.899 Other long term (current) drug therapy; F17.210 Nicotine dependence, cigarettes, uncomplicated
CPT/HCPCS: 82947; 88305; J2250; J2704; J7120

== ENCOUNTER → 2024-01-19 | Outpatient (CLI) | payer OTHER ==
[~2024-01-19] MED LIST changes: -BASAGLAR K100 UNIT/8 SC; +HUMALOG KW100 UNIT/1 SC; +INSULANPEN SC; +LISI20 PO; -LISI5 PO; +NIFE90ER PO; +PRED20 PO
== END ==
LOC: LAB SHORT 17:36 → LAB 17:36
DX: L02.212 Cutaneous abscess of back [any part, except buttock and flank] (principal); L08.9 Local infection of the skin and subcutaneous tissue, unspecified; D48.5 Neoplasm of uncertain behavior of skin; L57.8 Other skin changes due to chronic exposure to nonionizing radiation
CPT/HCPCS: 87070; 87077; 87147; 87186; 87205

== ENCOUNTER 2024-07-18 08:10 | Day surgery (SDC) | payer OTHER ==
[2024-07-18] VITALS (8 sets, daily range): BP systolic 126–151; BP diastolic 67–102
[~2024-07-18] VITALS: Ht 182.9 cm; Wt 130.0 kg
[~2024-07-18 08:10] MED LIST changes: +FLUT1DIS5 INH; +INSULANI SC; -INSULANPEN SC; -WIXELA 250-501 EAC1 INH
[2024-07-18] MEDS ORDERED: CeFAZolin Sodium 3,000 MG in NS 100 ML IV SCH (08:45)
[2024-07-18] MEDS ORDERED: Lactated Ringer's 1,000 ML IV SCH (08:45)
[2024-07-18] MEDS ORDERED: CeFAZolin Sodium 3,000 MG VIAL ONE (09:56)
--- NOTE | 2024-07-18 10:56 | NUR ---
Ambulatory in Day Surgery. Patient States Post-Procedure ride home has been arranged. Patient confirms NPO status and agrees with scheduled surgery. No hair noted to right shoulder, no clipping needed. Surgical site prepped with 2% Chlorhexidine cloth wipe. History, Chart, Medications and Allergies reviewed before start of procedure. Pre-Op teaching done. Pt verbalizes understanding.
[2024-07-18] MEDS ORDERED: Bupivacaine 0.5% HCl 5 MG/ML 30MLVIAL ONE (11:56)
[2024-07-18] MEDS ORDERED: Ipratropium/Albuterol SulF 2.5-0.5MG/3 ML Amp ONE (12:10)
[2024-07-18] MEDS ORDERED: Ipratropium/Albuterol SulF 2.5-0.5MG/3 ML Amp INH ONE (12:10)
[2024-07-18] MEDS ORDERED: FentaNYL Citrate 50 MCG/ML 2 ML Injection ONE (12:35)
[2024-07-18] MEDS ORDERED: propofoL 20 ML IV ONE ×2 (12:35→13:48)
[2024-07-18] MEDS ORDERED: SuccINYLCHOLINE Chloride 100 MG/5 ML 5MLSYR ONE (12:36)
[2024-07-18] MEDS ORDERED: Rocuronium Bromide 10 MG/ML 5ML Injection IV ONE (12:36)
[2024-07-18] MEDS ORDERED: Ketorolac Tromethamine 30mg Vial ONE (12:52)
[2024-07-18] MEDS ORDERED: Ondansetron HCl 2 MG / ML 2ML Vial ONE (12:52)
[2024-07-18] MEDS ORDERED: Dexamethasone Sod Phos 10 MG/ML 1ML VIAL ONE (12:52)
[2024-07-18] MEDS ORDERED: FentaNYL Citrate 50 MCG/ML 2 ML Injection IV PRN (13:20)
[2024-07-18] MEDS ORDERED: Albuterol 2.5 MG/3 ML VIAL INH PRN (13:20)
[2024-07-18] MEDS ORDERED: HYDROmorphone HCl/Pf 1MG SYR IV PRN (13:20)
[2024-07-18] MEDS ORDERED: Prochlorperazine Edisylate 10 mg Vial IV PRN (13:20)
[2024-07-18] MEDS ORDERED: Sugammadex Sodium 200 MG/2ML SDV (100 MG/ML) ONE (13:39)
[2024-07-18] MEDS ORDERED: HYDROcodone 5-APAP 325 TAB PO PRN (14:10)
--- NOTE | 2024-07-18 15:08 | NUR ---
DISCHARGE PT A&OX4/VSS/RA/APPROPRIATE, BURT PO H20/PUDDING, DRESSED SELF, IV DC'D, DRESSING CDI, DC INS PROVIDED/COPY SENT, LEFT VIA WC WITH DC VOL TO GO HOME WITH AUNT ERIK WITH ALL PERSONAL POSSESSIONS.
== END 2024-07-18 23:00 | disposition home or self-care (01) ==
LOC: ORSCMMR 08:10 → ORD 10:30 → ORSCMMR 10:30
PROVIDERS: Surgery
PROC: 0JB70ZX Excision of Back Subcutaneous Tissue and Fascia, Open Approach, Diagnostic (ICD-10-PCS; principal; 2024-07-18 10:30)
DX: L72.0 Epidermal cyst (principal); I10 Essential (primary) hypertension; J44.9 Chronic obstructive pulmonary disease, unspecified; G47.33 Obstructive sleep apnea (adult) (pediatric); F17.210 Nicotine dependence, cigarettes, uncomplicated; E11.40 Type 2 diabetes mellitus with diabetic neuropathy, unspecified; F41.9 Anxiety disorder, unspecified; Z79.4 Long term (current) use of insulin; Z79.84 Long term (current) use of oral hypoglycemic drugs; Z79.899 Other long term (current) drug therapy
CPT/HCPCS: 82947; 88304; A9270; J0330; J0690; J1100; J1885; J2405; J2704; J3010; J7120